=== PATIENT | male | born 1945 | race Caucasian/White ===

== ENCOUNTER 2020-01-12 06:08 | Day surgery (SDC) | payer MEDICARE ==
[~2020-01-12] VITALS: Ht 177.8 cm; Wt 82.7 kg
[2020-01-12] VITALS (7 sets, daily range): BP systolic 106–114; BP diastolic 64–78; PULSE 75–148; TEMP 97.8
[2020-01-12 07:38] LABS: PROTHROMBIN TIME 11.2 SECONDS (9.7-12.8)
[2020-01-12] MEDS ORDERED: ZYRTEC 10MG10 MG PO (07:47)
[2020-01-12] MEDS ORDERED: LIPITOR20 MG PO (07:48)
[2020-01-12] MEDS ORDERED: OTEZLA PO (07:48)
[2020-01-12] MEDS ORDERED: ASPIRIN 81M81 MG/TA2 PO (07:48)
[2020-01-12] MEDS ORDERED: HYTRIN 2MG CAPSU2 MG PO (07:49)
[2020-01-12] MEDS ORDERED: PROTONIX 40MG T40 MG PO (07:50)
[2020-01-12] MEDS ORDERED: CORDARONE200 MG/TAB PO (07:50)
[2020-01-12] MEDS ORDERED: ELIQUIS 5MG PO (07:52)
[2020-01-12 08:09] LABS: THYROID STIMULATING HORMONE 0.924 uIU/mL (0.465-4.680)
--- NOTE | 2020-01-12 10:00 | NUR ---
Discharge instructions given to pt.pt verbalizes understanding.INT removed,catheter tip intact.Pt escorted out via wheelchair by this nurse.
== END 2020-01-12 12:44 | disposition home or self-care (01) ==
LOC: EUO 06:08
PROVIDERS: Internal Medicine Interventional Cardiology
DX: I48.0 Paroxysmal atrial fibrillation (principal); I73.9 Peripheral vascular disease, unspecified; E01.0 Iodine-deficiency related diffuse (endemic) goiter; J44.9 Chronic obstructive pulmonary disease, unspecified; I25.10 Atherosclerotic heart disease of native coronary artery without angina pectoris; I10 Essential (primary) hypertension; F17.290 Nicotine dependence, other tobacco product, uncomplicated; G47.33 Obstructive sleep apnea (adult) (pediatric); K21.9 Gastro-esophageal reflux disease without esophagitis; Z79.82 Long term (current) use of aspirin; Z88.0 Allergy status to penicillin; Z88.8 Allergy status to other drugs, medicaments and biological substances; Z96.653 Presence of artificial knee joint, bilateral; Z96.619 Presence of unspecified artificial shoulder joint; Z79.01 Long term (current) use of anticoagulants
CPT/HCPCS: J2704; J7120